=== PATIENT | male | born 1960 | race African-American/Black ===

== ENCOUNTER 2021-03-04 13:33 | Inpatient (IN) | payer MEDICAID, OTHER ==
[~2021-03-04] VITALS: Ht 182.9 cm; Wt 68.0 kg
[2021-03-04] MEDS ORDERED: SODIUM CHLORIDE 0.9% 1,000 ML IV ONE (14:15)
[2021-03-04] MEDS ORDERED: MORPHINE SULFATE 4 MG/ML CPJ (NOT FOR IM USE) IV ONE (14:15)
[2021-03-04] MEDS ORDERED: PIPERACILLIN/TAZ 3.375G PREMIX 50 ML IV ONE (14:15)
[2021-03-04] MEDS ORDERED: VANCOMYCIN 1 G PREMIX 200 ML IV ONE (14:15)
[2021-03-04 15:28] LABS: BASOPHILS % 0.7 % (0.0-2.0); EOSINOPHILS % 0.9 % (0.0-5.0); HEMATOCRIT. 39.8 % (42.0-52.0); HEMOGLOBIN. 13.5 g/dL (14.0-18.0); LYMPHOCYTES % 13.7 % (20.0-50.0); MEAN CORPUSCULAR HEMOGLOBIN 31.1 pg (28.0-32.0); MEAN CORPUSCULAR VOLUME 91.8 fL (80.0-94.0); MEAN PLATELET VOLUME 7.7 fl (7.4-10.4); MONOCYTES % 6.9 % (2.0-8.0); NEUTROPHILS % 77.8 % (40.0-76.0); PLATELET 421 x1000/uL (130-400); RED BLOOD CELL COUNT 4.34 mill/uL (4.7-6.1); RED CELL DISTRIBUTION WIDTH 13.9 % (11.6-14.6)
[2021-03-04 15:36] LABS: CHLORIDE 103 mEq/L (98-107)
[2021-03-04 15:37] LABS: PROTHROMBIN TIME 10.9 sec (9.6-11.0)
[2021-03-04] MEDS ORDERED: MORPHINE SULFATE 2 MG/ML CPJ (NOT FOR IM USE) IV NR (16:15)
[2021-03-04] MEDS ORDERED: FENTANYL CITRATE/PF 50MCG/ML 2ML VIAL IV ONE ×2 (16:45→18:15)
[2021-03-04] MEDS ORDERED: HYDRALAZINE 20MG/ML VIAL IV ONE (18:15)
[2021-03-04] MEDS ORDERED: IOHEXOL-300 100 ML BOTTLE ONE (18:48)
[2021-03-05] MEDS: CLONIDINE 0.1MG TABLET PO PRN (06:11)
[2021-03-05] MEDS ORDERED: PIPERACILLIN/TAZOBACTAM 3.375 G in DEXTROSE 5% WATER 50 ML IV SCH (10:00)
[2021-03-05] MEDS ORDERED: NALOXONE HCL 0.4MG/ML VIAL IV PRN (10:00)
[2021-03-05] MEDS ORDERED: ONDANSETRON HCL 4MG/2ML INJ IV PRN (10:00)
[2021-03-05] MEDS ORDERED: DIPHENHYDRAMINE 50MG/ML VIAL IV PRN (10:00)
[2021-03-05] MEDS ORDERED: IPRATROPIUM/ALBUTEROL 0.5-3(2.5)MG/3ML NEB HHN PRN (10:00)
[2021-03-05] MEDS ORDERED: ACETAMINOPHEN 325MG TABLET PO PRN (10:00)
[2021-03-05 10:30] VITALS: BP 159/93
[2021-03-05 11:00] VITALS: BP 159/93
[2021-03-05 13:10] VITALS: BP 159/93
[2021-03-05] MEDS: VANCOMYCIN 1 G PREMIX 200 ML IV SCH ×2 (13:30→23:52)
[2021-03-05] MEDS: AMLODIPINE 5MG TABLET PO SCH (15:17)
[2021-03-05] MEDS: PIPERACILLIN/TAZOBACTAM 3.375G in DEXT 5% WATER 50ML IV SCH ×2 (15:17→22:37)
[2021-03-05 16:00] VITALS: BP 160/95
[2021-03-05] MEDS: HYDROCODONE/ACETAMINOPHEN 5/325MG TABLET PO PRN (17:55)
[2021-03-05 20:00] VITALS: BP 144/83
[2021-03-06] VITALS: BP 157/88
[2021-03-06 04:00] VITALS: BP 136/72
[2021-03-06] MEDS: PIPERACILLIN/TAZOBACTAM 3.375G in DEXT 5% WATER 50ML IV SCH ×3 (05:50→21:18)
[2021-03-06 06:28] LABS: CHLORIDE 102 mEq/L (98-107)
[2021-03-06 06:31] LABS: BASOPHILS % 0.4 % (0.0-2.0); EOSINOPHILS % 1.9 % (0.0-5.0); HEMATOCRIT. 32.3 % (42.0-52.0); HEMOGLOBIN. 11.1 g/dL (14.0-18.0); LYMPHOCYTES % 17.8 % (20.0-50.0); MEAN CORPUSCULAR HEMOGLOBIN 30.6 pg (28.0-32.0); MEAN PLATELET VOLUME 7.4 fl (7.4-10.4); MONOCYTES % 10.2 % (2.0-8.0); NEUTROPHILS % 69.7 % (40.0-76.0); PLATELET 387 x1000/uL (130-400); RED BLOOD CELL COUNT 3.63 mill/uL (4.7-6.1); RED CELL DISTRIBUTION WIDTH 13.2 % (11.6-14.6)
[2021-03-06 06:35] LABS: LDL CHOLESTEROL 68 mg/dL (5-100)
[2021-03-06 06:40] LABS: HDL CHOLESTEROL 53 mg/dL (40-59)
[2021-03-06 08:00] VITALS: BP 184/102
[2021-03-06] MEDS: CLONIDINE 0.1MG TABLET PO PRN ×2 (08:18→17:33)
[2021-03-06] MEDS: AMLODIPINE 5MG TABLET PO SCH ×2 (09:00→10:32)
[2021-03-06 12:00] VITALS: BP 153/91
[2021-03-06] MEDS: VANCOMYCIN 1 G PREMIX 200 ML IV SCH ×2 (13:26→23:41)
[2021-03-06 16:00] VITALS: BP 164/124
[2021-03-06 20:00] VITALS: BP 126/61
[2021-03-06] MEDS: HYDROCODONE/ACETAMINOPHEN 5/325MG TABLET PO PRN (21:18)
[2021-03-07] VITALS: BP 130/65
[2021-03-07 04:00] VITALS: BP 128/76
[2021-03-07] MEDS: PIPERACILLIN/TAZOBACTAM 3.375G in DEXT 5% WATER 50ML IV SCH ×3 (06:30→21:55)
[2021-03-07 08:13] LABS: BASOPHILS % 0.5 % (0.0-2.0); EOSINOPHILS % 2.8 % (0.0-5.0); HEMATOCRIT. 31.5 % (42.0-52.0); HEMOGLOBIN. 11.1 g/dL (14.0-18.0); LYMPHOCYTES % 16.8 % (20.0-50.0); MEAN CORPUSCULAR HEMOGLOBIN 30.9 pg (28.0-32.0); MEAN CORPUSCULAR VOLUME 87.7 fL (80.0-94.0); MEAN PLATELET VOLUME 7.2 fl (7.4-10.4); MONOCYTES % 10.8 % (2.0-8.0); NEUTROPHILS % 69.1 % (40.0-76.0); PLATELET 364 x1000/uL (130-400); RED BLOOD CELL COUNT 3.59 mill/uL (4.7-6.1); RED CELL DISTRIBUTION WIDTH 13.2 % (11.6-14.6)
[2021-03-07 08:22] LABS: CHLORIDE 102 mEq/L (98-107)
[2021-03-07] MEDS: AMLODIPINE 5MG TABLET PO SCH (10:45)
[2021-03-07 12:00] VITALS: BP 168/81
[2021-03-07] MEDS: VANCOMYCIN 750 MG PREMIX 150 ML IV SCH (14:04)
[2021-03-07 16:00] VITALS: BP 174/81
[2021-03-07] MEDS: CLONIDINE 0.1MG TABLET PO PRN ×2 (18:08→21:11)
[2021-03-07 20:00] VITALS: BP 166/83
[2021-03-07] MEDS: HYDROCODONE/ACETAMINOPHEN 5/325MG TABLET PO PRN (22:18)
[2021-03-08] VITALS: BP 168/86
[2021-03-08] MEDS: VANCOMYCIN 750 MG PREMIX 150 ML IV SCH ×2 (01:15→12:44)
[2021-03-08] MEDS: CLONIDINE 0.1MG TABLET PO PRN (04:22)
[2021-03-08] MEDS: PIPERACILLIN/TAZOBACTAM 3.375G in DEXT 5% WATER 50ML IV SCH ×2 (05:32→14:37)
[2021-03-08] MEDS: AMLODIPINE 5MG TABLET PO SCH ×2 (09:00→09:16)
[2021-03-08] MEDS ORDERED: AMLO5TAB88 PO (12:01)
[2021-03-08] MEDS ORDERED: LEVO750T46 MT (12:01)
[2021-03-08] MEDS ORDERED: SULF1TAB48 MT (12:01)
[2021-03-08] MEDS: HYDROCODONE/ACETAMINOPHEN 5/325MG TABLET PO PRN (16:59)
[2021-03-08 18:05] VITALS: BP 147/80
== END 2021-03-08 18:29 | disposition home health service (06) | DRG 349 ==
LOC: ER 13:33 → MICUSO 15:50 → EDBEDREQ 15:58 → EDBEDREQSVC 15:58 → ENRESERV 21:09 → CANRESERV 21:09 → 6EST 03-05 08:07
PROVIDERS: ADMIT Internal Medicine; ATTEND Internal Medicine
DX: T84.623A Infection and inflammatory reaction due to internal fixation device of left tibia, initial encounter (principal); L03.116 Cellulitis of left lower limb; F17.200 Nicotine dependence, unspecified, uncomplicated; I10 Essential (primary) hypertension; M60.862 Other myositis, left lower leg; Y83.8 Other surgical procedures as the cause of abnormal reaction of the patient, or of later complication, without mention of misadventure at the time of the procedure; Y92.89 Other specified places as the place of occurrence of the external cause
CPT/HCPCS: 36415; 71045; 73590; 73600; 73701; 80048; 80053; 80061; 80202; 83605; 84145; 84443; 85025; 85651; 86140; 93005; 93970; 93971; 97161; 99285; J0360; J2543; J3010; J3370; J7030; J7040; J7060; Q9967

== ENCOUNTER 2022-09-30 19:14 | Emergency (ER) | payer MEDICAID ==
[~2022-09-30] VITALS: Ht 185.4 cm; Wt 87.0 kg
[~2022-09-30 19:14] MED LIST: AMLO5TAB88 PO; LEVO750T68 MT; SULF1TAB48 MT
[2022-09-30 19:51] VITALS: BP 173/119
[2022-09-30] MEDS ORDERED: IBUP-2028 MT (22:45)
[2022-09-30] MEDS ORDERED: [UNRECOGNIZED DRUG - CODE] MC (22:45)
[2022-09-30] MEDS ORDERED: ALBU6.7H3 INH (22:45)
[2022-09-30] MEDS ORDERED: AMLO5TAB4 MT (22:45)
== END 2022-09-30 22:54 | disposition home or self-care (01) ==
LOC: ER 19:14
DX: Z76.0 Encounter for issue of repeat prescription (principal); Z13.9 Encounter for screening, unspecified
CPT/HCPCS: 99281